=== PATIENT | male | born 1950 | race African-American/Black ===

== ENCOUNTER 2016-09-09 15:43 | Emergency (ER) | payer MEDICARE ==
[2016-09-09] MEDS ORDERED: NORMODYNE IV ONE (17:02)
--- NOTE | 2016-09-09 17:02 | Emergency Department Report ---
HPI - General Chief Complaint: Hyperglycemia Time Seen by Provider: 09/09/16 16:54 - HPI HPI: This is a 65-year-old male who presents to the emergency department by EMS from his daughter's home with complaint of uncontrolled blood sugar. The reason why the daughter insisted that he come to the emergency department was because he had a fall last night due to some dizziness. She noticed a blister to the inside of left elbow and the patient has been complaining of a little bit of a headache since that time. Unsure if he was knocked out or passed out. Patient is insulin-dependent diabetic and has been noncompliant with his insulin since July. He lives in [place] and she says that he rarely will bring his medications with him anyways when he comes to visit, and he has been here for the past 3 weeks. He does have a primary care backup. He has a history of hypertension as well. Patient does not speak much Lithuanian and therefore translation is done by the daughter. She does not seem to think that he has had any previous history of diabetic ketoacidosis. ED Past Medical Hx - Past Medical History Hx Hypertension: Yes Hx Diabetes: Yes - Surgical History Past Surgical History?: No - Social History Smoking Status: Current Every Day Smoker Substance Use Type: None - Medications Home Medications: Home Medications Medication Instructions Recorded Confirmed Last Taken Type Nitrofurantoin [place]/M-Cryst 100 mg PO Q12HR #14 capsule 09/09/16 Unknown Rx [Macrobid CAP] ED Review of Systems ROS: Stated complaint: HYPERGLYCEMIA Other details as noted in HPI Comment: All other systems reviewed and negative Constitutional: denies: chills, fever Eyes: denies: eye pain, eye discharge, vision change ENT: denies: ear pain, throat pain Respiratory: denies: cough, shortness of breath, wheezing Cardiovascular: denies: chest pain, palpitations Endocrine: increased thirst, increased urine Gastrointestinal: denies: abdominal pain, nausea, diarrhea Genitourinary: frequency. denies: dysuria Musculoskeletal: arthralgia. denies: back pain, joint swelling Skin: denies: rash, lesions Neurological: headache. denies: weakness, numbness Physical Exam - Physical Exam Vital Signs: Vital Signs 09/09/16 16:34 Temperature 98.2 F Pulse Rate 122 H Respiratory 18 Rate Blood Pressure 201/95 O2 Sat by Pulse 98 Oximetry Physical Exam: GENERAL: The patient is well-developed well-nourished. HEENT: Normocephalic. Atraumatic. Extraocular motions are intact. Patient has moist mucous membranes. Pupils equal reactive to light bilaterally. No nystagmus. NECK: Supple. Trachea is midline. CHEST/LUNGS: Clear to auscultation. There is no respiratory distress noted. HEART/CARDIOVASCULAR: Regular. There is no tachycardia. There is no gallop rub or murmur. ABDOMEN: Abdomen is soft, nontender. Patient has normal bowel sounds. There is no abdominal distention. SKIN: Patient has some serous fluid-filled blisters to the inside the left elbow. NEURO: The patient is awake, alert, and oriented. The patient is cooperative. The patient has no focal neurologic deficits. The patient has normal speech. Cranial nerves II through XII grossly intact. MUSCULOSKELETAL: There is no tenderness or deformity. There is no limitation range of motion. There is no evidence of acute injury. ED Course Vital Signs 09/09/16 16:34 Temperature 98.2 F Pulse Rate 122 H Respiratory 18 Rate Blood Pressure 201/95 O2 Sat by Pulse 98 Oximetry ED Medical Decision Making - Lab Data Result diagrams: 09/09/16 16:50 09/09/16 16:50 - EKG Data -: EKG Interpreted by Me EKG shows normal: sinus rhythm, axis, intervals, QRS complexes (low voltage), ST -T waves Rate: normal - EKG Data When compared to previous EKG there are: previous EKG unavailable Interpretation: normal EKG - Radiology Data Radiology results: report reviewed, image reviewed interpreted by me: X-ray left elbow does not show any fracture or dislocation or any acute process. CT of the head does not show any acute process including no hemorrhage, mass, shift, diffuse edema or skull fracture. - Medical Decision Making 65-year-old male presents to the emergency Department with uncontrolled blood sugar, very elevated blood pressure and medication noncompliance. Allegedly the patient had a fall last night. For this reason a CT of the head was done that did not show any bleed, shift, mass or any acute process. There was a complaint of mild left elbow pain and a serous filled blister seen so an x-ray was done that once again did not show any fracture or dislocation. In the process of the ED course the blister opened up and now there is just a skin tear and/or abrasion. Patient's labs did show some hyperglycemia of about 350. It came down to 280 after an IV fluid resuscitation of 1 L and 7 units of insulin. Patient does not appear to be in DKA or HHNK. There is no significant ketones or elevated anion gap. Patient was given another dose of subcutaneous insulin to bring it down to more reasonable levels well. Patient was tested in the emergency department and appears stable while walking around. He did have some transient hypotension but responded well to some more IV fluid and is been reevaluated multiple times and his blood pressures remained stable. Patient denies any current complaints. He has resolution of his headache. He was seen ambulatory and appears stable doing so. Follows reasons patient appears safe for discharge home. He is supposed to go back to [place] this coming weekend but he has been given referrals for both primary care and orthopedics encase he is staying. He is to be brought back to the emergency department with any worsening of his symptoms or any acute distress. There are unsure about his insulin so I am unable to fill his medications at this time. However he has been instructed to stay away from foods that are high in carbohydrates, sugars, starches to help with his diabetes and stay away from foods that are high in salt and caffeinated products to help with his blood pressure. He is to get his blood sugar checked either at home or at any local fire station or pharmacy. He is to return to the emergency department with any worsening of symptoms or any acute distress. - Differential Diagnosis DKA, HHNK, hypertensive urgency, brain bleed Critical Care Time: No Critical care attestation.: If time is entered above; I have spent that time in minutes in the direct care of this critically ill patient, excluding procedure time. ED Disposition Clinical Impression: Hyperglycemia, Noncompliance with medication regimen, Hypertensive urgency UTI (urinary tract infection) Qualifiers: Urinary tract infection type: acute cystitis Hematuria presence: without hematuria Qualified Code(s): N30.00 - Acute cystitis without hematuria Disposition: DISCHARGED TO HOME OR SELFCARE Is pt being admited?: No Condition: Stable Instructions: Hypertension (ED), Diabetic Hyperglycemia (ED), Urinary Tract Infection in Men (ED) Additional Instructions: Please follow up with one of the primary care doctor referrals that you've been given. If you are returning back to [place] soon, then I would've follow -up with your own primary care doctor. I've also given you a referral for a local orthopedist, Dr. Lombardi, in case you need to follow-up with Dr. linda chakraborty. Return to the emergency department with any worsening of her symptoms or any uncontrolled blood sugar or any acute distress.. Prescriptions: Nitrofurantoin [place]/M-Cryst [Macrobid CAP] 100 mg PO Q12HR #14 capsule Referrals: PRIMARY MD DION [Primary Care Provider] - 3-5 Days PO GHOSH MD [Staff Physician] - 3-5 Days ARTEM LOMBARDI MD [Staff Physician] - 3-5 Days [facility] [Outside] - 3-5 Days Time of Disposition: 22:01
[2016-09-09] MEDS ORDERED: NACL 0.9% 1000 ML 1,000 ML IV ONE (17:03)
[2016-09-09 17:05] LABS: Basophils % (Auto) 0.8 % (0.0-1.8); Eosinophils % (Auto) 0.3 % (0.0-4.3); Hematocrit 40.2 % (35.5-45.6); Hemoglobin 13.2 gm/dl (11.8-15.2); Mean Corpuscular HGB Conc 33 % (32-34); Mean Corpuscular Hemoglobin 30 pg (28-32); Mean Corpuscular Volume 91 fl (84-94); Platelet Count 157 K/mm3 (140-440); Red Cell Distribution Width 13.3 % (13.2-15.2); White Blood Count 13.9 K/mm3 (4.5-11.0)
[2016-09-09 17:20] LABS: Anion Gap 19 mmol/L; B-Hydroxybutyrate 6.9 mg/dL (0.2-2.8); BUN/Creatinine Ratio 15.45; Blood Urea Nitrogen 17 mg/dL (9-20); Calcium 9.3 mg/dL (8.4-10.2); Carbon Dioxide 27 mmol/L (22-30); Glucose 361 mg/dL (75-100); Potassium 3.9 mmol/L (3.6-5.0); Sodium 132 mmol/L (137-145)
--- NOTE | 2016-09-09 17:33 | Cat Scan Report ---
FINAL REPORT EXAM: CT HEAD/BRAIN WO CON HISTORY: fall with headache. TECHNIQUE: CT of the head was performed without intravenous contrast. PRIORS: None. FINDINGS: The ventricles are normal in shape and position. The ventricles are nondilated. No intracranial hemorrhage, mass, mass effect, midline shift or evidence of acute ischemic infarct. The basilar cisterns are patent. Mucosal thickening of the maxillary and ethmoid sinuses is likely congestive or inflammatory. The extracranial soft tissues demonstrate no abnormality. The calvarium is intact. The orbits are intact. The mastoid air cells are clear. IMPRESSION: No acute intracranial abnormality.
[2016-09-09] MEDS ORDERED: APRESOLINE IV ONE (18:13)
[2016-09-09 18:36] LABS: Bacteria,Urine 1+ /HPF (Negative); Bilirubin,Urine NEG (Negative); Blood,Urine MOD (Negative); Ketones,Urine TR mg/dL (Negative); Leukocyte Esterase,Urine SM (Negative); Mucus,Urine FEW /HPF; Nitrite,Urine NEG (Negative); Urobilinogen,Urine < 2.0 mg/dL (<2.0)
[2016-09-09] MEDS ORDERED: ROCEPHIN/NS 1 GM/50 ML 50 ML IV ONE (18:48)
--- NOTE | 2016-09-09 19:27 | Admit Criteria Form ---
Admission Criteria Documentation: HYPERTENSION Clinical Indications for Admission to Inpatient Care ( Place "X" for any and all applicable criteria): Admission is indicated for ANY ONE of the following(1)(2)(3)(4): [ ]I. Hypertensive emergency, with evidence of acute and progressing target organ disease as indicated by ANY ONE of the following: [ ]a) Hypertensive encephalopathy (eg, confusion, altered mental status) [ ]b) Cerebral infarction [ ]c) Intracranial hemorrhage [ ]d) Myocardial ischemia or infarction [ ]e) Pulmonary edema [ ]f) Aortic dissection [ ]g) Seizure [ ]h) Acute renal insufficiency [ ]i) Papilledema [ ]j) Microangiopathic hemolytic anemia [ ]II. Adrenergic crisis (eg, severe hypertension due to pheochromocytoma crisis, cocaine or amphetamine intoxication, or clonidine withdrawal) [X ]III. Severe hypertension (SBP greater than 180 mmHg or DBP greater than 110 mmHg or greater than the 95th percentile for age, gender, and height in pediatric patients) that cannot be controlled (eg, to SBP less than 160 mmHg and DBP less than 100 mmHg in adults) by treatment with oral medication in emergency department or observation care Extended stay beyond goal length of stay may be needed for(11)(12)(13): [ ]a) Persistent hypertensive encephalopathy [ ]b) Continuation of pulmonary edema [ ]c) Recurring or persistent severe hypertension [ ]d) Target organ damage (eg, angina, stroke, aortic dissection) [ ]e) Associated renal insufficiency The original [employer] content created by [employer] has been revised. The portions of the content which have been revised are identified through the use of italic text or in bold, and [facility] has neither reviewed nor approved the modified material. All other unmodified content is copyright [facility]. Please see references footnoted in the original [facility] edition 2016 Admission Criteria Met: Yes
[2016-09-09] MEDS ORDERED: NACL 0.9% 1000 ML 1,000 ML ONE (20:28)
[2016-09-09 23:38] VITALS: BP 130/67
--- NOTE | 2016-09-10 08:37 | XRay Report ---
LEFT ELBOW, 3 views: History: Left elbow pain The bony architecture is intact without evidence of fracture or dislocation. No significant soft tissue abnormality is seen. IMPRESSION: Normal left elbow.
== END 2016-09-09 23:10 | disposition home or self-care (01) ==
LOC: ED 15:43
DX: N30.00 Acute cystitis without hematuria (principal); E11.65 Type 2 diabetes mellitus with hyperglycemia; Z91.14 Patient's other noncompliance with medication regimen; M25.522 Pain in left elbow; I10 Essential (primary) hypertension; W19.XXXA Unspecified fall, initial encounter; Y93.9 Activity, unspecified; Y92.9 Unspecified place or not applicable; Y99.9 Unspecified external cause status; F17.200 Nicotine dependence, unspecified, uncomplicated
CPT/HCPCS: 29105; 36415; 70450; 73080; 80048; 81001; 82010; 82805; 82962; 84443; 84484; 85025; 93005; 93010; 96361; 96365; 96375; 96376; 99285; J0696; J7030; J1815